=== PATIENT | male | born 1960 ===

== ENCOUNTER 2025-01-13 07:56 | Day surgery (SDC) | payer OTHER ==
[2025-01-09 09:11] VITALS: BP 135/66
[2025-01-09 09:13] LABS: BASO % 1.1 % (0.1-1.2); EOS # 0.29 (0.04-0.54); EOS % 4.1 % (0.7-7.0); LYMPH # 2.35 (1.18-3.74); LYMPH % 33.5 % (19.3-53.1); MEAN PLATELET VOLUME 12.60 fl (9.4-12.4); MONO # 0.69 (0.24-0.82); MONO % 9.8 % (4.7-12.5); NEUT # 3.59 (1.56-6.13); NEUT % 51.2 % (34.0-71.1); RED CELL DISTRIBUTION WIDTH 12.6 % (11.6-14.4)
[2025-01-09 09:36] LABS: URINE APPEARANCE Clear; URINE BILIRRUBIN Negative (NEGATIVE); URINE BLOOD Negative; URINE COLOR Yellow; URINE GLUCOSE Negative (NEGATIVE); URINE KETONE Negative (NEGATIVE); URINE LEUKOCYTE Negative; URINE NITRATE Negative; URINE PROTEIN Negative (NEGATIVE); URINE UROBILINOGEN 0.2 E.U./dl
[2025-01-09 09:41] LABS: URINE BACTERIA 4.7 uL (0.0-1933); URINE EPITHELIAL CELLS 2.2 uL (0.0-38.8); URINE RBC 3.6 uL (0.0-20.8); URINE WBC 3.6 uL (0.0-23.2)
[2025-01-09 09:45] LABS: INR 1.1
[2025-01-09 09:48] LABS: ALT/SGPT 31.0 U/L (12-78); AST/SGOT 25.0 U/L (15-37); BILIRUBIN TOTAL 0.97 mg/dL (0.3-1.2); BUN CREA RATIO 23.0 (7.0-25.0); CREATININE SERUM 1.18 mg/dL (0.70-1.30); GFR 61.95; GLOBULINA 3.6 G/DL (2.4-3.5); GLUCOSE FASTING 102.0 mg/dL (65-100); OSMOLALITY SERUM 285.0 MOSM/KG (275-295)
[2025-01-09 10:05] LABS: URINE CAST 0.00 uL (0.0-1.40)
[~2025-01-13] VITALS: Ht 170.2 cm; Wt 74.8 kg
[~2025-01-13 07:56] MED LIST: ATORVASTATIN CA10 MG PO; AZOR 10-20 MG1 EACH; COZAAR100 MG PO
[2025-01-13] MEDS ORDERED: CEFTRIAXONE SODIUM 2,000 MG VIAL ONE (08:50)
[2025-01-13] MEDS ORDERED: METRONIDAZOLE/SODIUM CHLORIDE 500 MG/100 ML PIGGYBACK IV ONE (08:51)
[2025-01-13] MEDS ORDERED: DIBUCAINE 30 GM TUBE ONE (10:44)
[2025-01-13] MEDS ORDERED: POVIDONE-IODINE 118 ML BOTT TOP ONE (10:44)
[2025-01-13] MEDS ORDERED: BUPIVACAINE HCL/MPF 0.5% 30ML VIAL ONE (10:44)
[2025-01-13] MEDS ORDERED: LIDOCAINE HCL 1%/EPINEPHRINE 20ML VIAL IJ ONE (10:44)
[2025-01-13] MEDS ORDERED: COLACE100 MG PO (11:53)
[2025-01-13] MEDS ORDERED: TRAM1TAB98 PO (11:53)
== END 2025-01-13 16:15 | disposition home or self-care (01) ==
LOC: CIR.AMB 07:56
PROVIDERS: ATTEND Surgery
DX: K64.1 Second degree hemorrhoids (principal); K64.5 Perianal venous thrombosis; K62.89 Other specified diseases of anus and rectum